=== PATIENT | male | born 2000 | race African-American/Black ===

== ENCOUNTER 2019-08-25 08:05 | Emergency (ER) | payer SELFPAY ==
[2019-08-25 08:09] VITALS: BP 124/95; PULSE 76; RESP 16; TEMP 36.9; O2SAT 100
--- NOTE | 2019-08-25 08:30 | ED.GENADULT ---
HPI - General Adult General Chief complaint: Urogenital-Male Stated complaint: std check Time Seen by Provider: 08/25/19 08:30 Source: patient Mode of arrival: ambulatory Limitations: no limitations History of Present Illness HPI narrative: Patient is a 19-year-old male who presented for evaluation of STD check. Patient reports that his fianc?e tested positive for chlamydia even though she has had no symptoms. Patient endorses no abdominal pain, no fever, no penile discharge, penile pain, scrotal pain or lesions. Patient has no dysuria or hematuria. Related Data Home Medications Medication Instructions Recorded Confirmed No Home Medications 08/25/19 08/25/19 Allergies Allergy/AdvReac Type Severity Reaction Status Date / Time No Known Allergies Allergy Verified 08/25/19 08:12 Review of Systems Review of Systems: Narrative: CONSTITUTIONAL: Denies fever ENT: Denies rhinorrhea, congestion, sore throat CARDIOVASCULAR: Denies chest pain RESPIRATORY: Denies cough GASTROINTESTINAL: Denies abdominal pain, nausea, vomiting GENITOURINARY: Denies dysuria or hematuria. SKIN: Denies rash or itching. MUSCULOSKELETAL: Denies back pain PMFSH Past Medical History Medical History (Updated 08/25/19 @ 08:46 by Leila Banda MD) Asthma Surgical History Surgical History (Updated 08/25/19 @ 08:43 by Leila Banda MD) No pertinent past surgical history Social History Social History (Updated 08/25/19 @ 08:43 by Leila Banda MD) Smoking status: Current some day smoker Tobacco type: cigarettes Alcohol intake: current Drinks per week: 1 Substance use: never Living arrangements: with family Gender identity (if verbalized by the patient): Male Exam Narrative: Exam Narrative: GENERAL: Awake, alert, conversant HEAD: Normocephalic, atraumatic. EYES: PERRLA and EOMI. ENT: Nares clear, no rhinorrhea or epistaxis. Mucous membranes moist. NECK: Supple. CHEST: No respiratory distress, breathing even and non labored HEART: Regular rate, sinus rhythm ABDOMEN:Non distended, non tender EXTREMITIES: Normal range of motion. No edema. SKIN: Warm, dry, no rash. NEURO:No focal deficits. Alert and oriented x3 Course Course Emergency Course: Patient presents for STD check in the setting of fianc? having positive chlamydia testing. Patient without any abdominal pain, fever, penile pain, scrotal pain or discharge. We will go ahead and send urine PCR on patient, I did explain this could take 2 to 3 days to resolve. Shared decision-making occurred with the patient, he would like to receive treatment based on his fianc?e's positive test. Patient was given treatment in the ER. He was then discharged home. Vital Signs Vital signs: Vital Signs Temperature 36.9 C 08/25/19 08:09 Pulse Rate 76 08/25/19 08:09 Respiratory Rate 16 08/25/19 08:09 Blood Pressure 124/95 H 08/25/19 08:09 Pulse Oximetry 100 08/25/19 08:09 Temperature 36.9 C 08/25/19 08:09 Pulse Rate 76 08/25/19 08:09 Respiratory Rate 16 08/25/19 08:09 Blood Pressure 124/95 H 08/25/19 08:09 Pulse Oximetry 100 08/25/19 08:09 Medical Decision Making Vital Signs Vital Signs: Vital Signs Temperature 36.9 C 08/25/19 08:09 Pulse Rate 76 08/25/19 08:09 Respiratory Rate 16 08/25/19 08:09 Blood Pressure 124/95 H 08/25/19 08:09 Pulse Oximetry 100 08/25/19 08:09 Temperature 36.9 C 08/25/19 08:09 Pulse Rate 76 08/25/19 08:09 Respiratory Rate 16 08/25/19 08:09 Blood Pressure 124/95 H 08/25/19 08:09 Pulse Oximetry 100 08/25/19 08:09 Lab Data Labs: Urine Characteristics Clear Discharge Plan Discharge Clinical Impression: Sexually transmitted infection Patient Disposition: Home, Self-Care Condition: Stable Instructions: Sexually Transmitted Diseases (ED), Safe Sex Practices (ED) Additional Instructions: Your urine was sent to be tested for chlamydia
[2019-08-25] MEDS: AZITHROMYCIN 250 MG TABLET 1000 MG PO (08:59)
[2019-08-25] MEDS: cefTRIAXone 250 MG VIAL IM (09:00)
[2019-08-25 09:01] VITALS: BP 115/78; PULSE 69; RESP 16; O2SAT 100
== END 2019-08-25 09:02 | disposition home or self-care (01) ==
LOC: ANHED 08:52
PROVIDERS: Emergency Provider Emergency Medicine
DX: A64 Unspecified sexually transmitted disease (principal); J45.909 Unspecified asthma, uncomplicated; F17.210 Nicotine dependence, cigarettes, uncomplicated
CPT/HCPCS: 87491; 87591; 96372; 99283; A9270; J0696